=== PATIENT | female | born 1990 | race Caucasian/White ===

== ENCOUNTER → 2016-12-05 | Outpatient (CLI) | payer BC | LOC: FIMAGING 10:08 | PROVIDERS: ATTEND Nurse Practitioner | DX: N63 Unspecified lump in breast (principal) ==

== ENCOUNTER 2019-02-04 11:03 | Emergency (ER) | payer BC, MEDICAID, OTHER ==
--- NOTE | 2019-02-04 11:16 | EDPHY ---
H & P Stated Complaint: 2 days sob/difficulty catching breath/feeling faint Time Seen by Provider: 02/04/19 11:16 HPI/ROS: CHIEF COMPLAINT: Difficulty breathing HISTORY OF PRESENT ILLNESS: This is a 29-year-old female referred to the emergency department from Urgent Care where she originally presented. She has had 2 days of difficulty breathing. This came on suddenly Friday. She felt acutely short of breath, lightheaded, and had some tingling in her extremities. She has continued to feel short of breath since then. She finds that she has to stop talking in take a deep breath periodically. She has not had chest pain. There has been no cough or fever. No chest trauma. She has no personal or family history of VTE. She has had no recent travel or surgery. After obtaining my original history the patient informed me that she occasionally uses IV drugs. REVIEW OF SYSTEMS: A ten system review of systems was performed and is negative with the exception of the items mentioned in the HPI. Past medical history: Anxiety, IVDA Past surgical history: None Family history: No history of venous thromboembolic disease Social history: She does not use tobacco and denies use of alcohol. She tells me that she uses IV drugs on occasion. General Appearance: Alert. Vital signs reviewed. Respiratory rate 18, room air pulse ox 94%. Heart rate 92. She takes an occasional gasping deep breath. Eyes: Pupils equal and round, no conjunctival injection, no discharge. Anicteric. ENT, Mouth: Mucous membranes are moist, no oropharyngeal erythema or edema. Neck: No lymphadenopathy, supple. Respiratory: Lungs are clear to auscultation; no wheezes, rales, or rhonchi. Cardiovascular: Regular rate and rhythm; no murmur, rub, or gallop. Gastrointestinal: Abdomen is soft and nontender, no masses or organomegaly, bowel sounds normal. Skin: Warm and dry, no rashes on exposed skin, normal color. Back: Nontender to palpation over the thoracolumbar spine. No CVAT. Extremities: No lower extremity edema, no calf tenderness or swelling. Neurological: Alert and oriented. Moving all four extremities easily and equally. Psychiatric: Normal affect. - Personal History LMP (Females 10-55): IUD In Place Current Tetanus Diphtheria and Acellular Pertussis (TDAP): Yes - Medical/Surgical History Hx Asthma: No Hx Chronic Respiratory Disease: No Hx Diabetes: No Hx Cardiac Disease: No Hx Renal Disease: No Hx Cirrhosis: No Hx Alcoholism: No Hx HIV/AIDS: No Hx Splenectomy or Spleen Trauma: No Other PMH: anxiety. SURGERY NONE - Social History Smoking Status: Current every day smoker Constitutional: Initial Vital Signs Temperature (C) 36.8 C 02/04/19 11:08 Heart Rate 92 02/04/19 11:08 Respiratory Rate 18 02/04/19 11:08 Blood Pressure 107/78 02/04/19 11:08 O2 Sat (%) 94 02/04/19 11:08 O2 Delivery Mode Room Air Allergies/Adverse Reactions: No Known Allergies Allergy (Verified 02/04/19 11:07) Home Medications: Medication Instructions Recorded Xanax 02/04/19 Medical Decision Making ED Course/Re-evaluation: 29-year-old female with a history of IV drug abuse who presents with shortness of breath. On physical exam her lungs are clear. She takes an occasional gasping short breath but is able to speak in full sentences. She is not tachypneic or tachycardic. Normal pulse ox on room air. My initial impression is spontaneous pneumothorax, however this is not borne out by her chest x-ray, which is normal, no evidence of infiltrate or other acut epulmonary disease.. I spoke with her about her chest x-ray. She is concerned about the possibility of PE, this possibility was presented to her at Urgent Care. She does not have risk factors for PE and I explained to her that normally we would not need to do any blood work. She requests D-dimer. D-dimer was performed and is slightly elevated at 0.8. In order to obtain the D-dimer an IV was placed. Nursing staff observed her self inject into the IV. She had her handbag underneath the blankets and appeared to be manipulating the IV. She was noted to have an abrupt increase in her heart rate from the 90s to 120s. She has remained tachycardic since then with heart rates around 110. The patient then pulled out her IV. When I confronted her about this she denied self injecting. She tells me that she pulled out the IV because she found it uncomfortable. Security was notified. They took her hand bag. Police department has also been notified. She did remain tachycardic for an hour so but was subsequently noted to have a normal heart rate. CT angiogram was reported to me by Dr. Nesbitt is negative for PE. I relayed this to the patient. I explained to her that I do not know what is causing her to feel short of breath but have not found any life-threatening problems at this point in time. During our conversation she was crying in her heart rate was again elevated. She will be offered drug rehabilitation information. My differential diagnoses include but are not limited to pneumothorax, infection , RAD, anxiety/panic attack, PE. Her presentation is most consistent with anxiety. Reportedly a search of her handbag revealed filled syringes. Police notified. Police arrived in ED, patient discharged in police custody. - Data Points Laboratory Results: Laboratory Results 02/04/19 12:50 02/04/19 12:50 Point of Care Test Results: Chemistry 02/04/19 15:17 POC Sodium 143 mEq/L mEq/L (135-145) POC Potassium 3.4 mEq/L mEq/L (3.3-5.0) POC Chloride 112 mEq/L H mEq/L (97-110) POC Total CO2 15 mEq/L L mEq/L (22-31) POC BUN 15 mg/dL mg/dL (7-23) POC Creatinine 1.1 mg/dL H mg/dL (0.6-1.0) POC Glucose 76 mg/dL mg/dL (70-100) ISTAT H&H 02/04/19 15:17 POC Hgb 14.3 gm/dL gm/dL (12.6-16.3) POC Hct 42 % % (38-47) Departure - Departure Disposition: Home, Routine, Self-Care Clinical Impression: IV drug abuse Dyspnea Qualifiers: Dyspnea type: shortness of breath Qualified Code(s): R06.02 - Shortness of breath; R06.00 - Dyspnea, unspecified; R06.01 - Orthopnea Condition: Good Instructions: Shortness of Breath (ED) Additional Instructions: As we discussed, it is not clear what is causing you to feel short of breath. Both your chest x-ray and the CAT scan of your chest are normal. Hopefully this will resolve on its own. I am referring you to a primary care physician, Dr. Beckett. I am also referring you to narcotics [facility] and [facility]. Referrals: NONE *PRIMARY CARE P,. [Primary Care Provider] - As per Instructions [facility] 24 Hours [Outside] - As per Instructions Narcotics Anonymous [Outside] - As per Instructions Olaf Beckett DO [Doctor of Osteopathy] - As per Instructions
[2019-02-04 13:23] LABS: PLATELET COUNT 194 10^3/uL (150-400)
[2019-02-04] MEDS ORDERED: IOPAMIDOL (ISOVUE 370) 100 ML BTL IV ONE (13:39)
[2019-02-04 15:40] VITALS: BP 128/79
== END 2019-02-04 17:08 | disposition home or self-care (01) ==
DX: R06.02 Shortness of breath (principal); R06.01 Orthopnea; F41.9 Anxiety disorder, unspecified
CPT/HCPCS: 82435-PO; 82565-PO; 82947-PO; 84132-PO; 84295-PO; 84520-PO; 85014-ER; Q9967

== ENCOUNTER 2019-02-17 22:58 | Emergency (ER) | payer MEDICAID | END 2019-02-17 23:55 | disposition home or self-care (01) ==